=== PATIENT | female | born 1975 | race American Indian/Alaskan Native ===

== ENCOUNTER 2018-01-01 11:01 | Emergency (ER) | payer SELFPAY ==
--- NOTE | 2018-01-01 12:32 | Emergency Department Report ---
- General Chief Complaint: Upper Respiratory Infection Stated Complaint: BODY PAIN/SINUS PRESSURE Source: patient Mode of arrival: Ambulatory Limitations: No Limitations - History of Present Illness Initial Comments: 42-year-old female with complaint of possible sinus infection. She reports initially had sore throat one week ago that has since resolved. Now states has left facial pain, left earache and sinus congestion. Patient reports history of sinus infections in the past, states Flonase is not working this time. Denies fever, vomiting. Patient has history of hypertension, requesting refill on lisinopril and hydrochlorothiazide. States has been out of her medications for "a while." MD Complaint: sore throat, nasal congestion, sinus pain -: week(s) (1) Severity: moderate Quality: sharp, aching Consistency: constant Improves With: nothing Worsens With: nothing Associated Symptoms: headache, nasal congestion. denies: fever, cough, nausea, vomiting - Related Data Previous Rx's Medication Instructions Recorded Last Taken Type Amoxicillin/Potassium Clav 1 each PO BID 10 Days #20 tablet 01/01/18 Unknown Rx [Augmentin 875-125 Tablet] Lisinopril/Hydrochlorothiazide 1 tab PO QDAY #30 tab 01/01/18 Unknown Rx [Zestoretic 20-25 mg] Naproxen [Naprosyn] 500 mg PO BID PRN #20 tablet 01/01/18 Unknown Rx Allergies Allergy/AdvReac Type Severity Reaction Status Date / Time No Known Allergies Allergy Unverified 01/01/18 11:36 ED Review of Systems ROS: Stated complaint: BODY PAIN/SINUS PRESSURE Other details as noted in HPI Comment: All other systems reviewed and negative Constitutional: denies: chills, fever ENT: ear pain, throat pain, congestion, other (sinus pain) Respiratory: denies: cough Gastrointestinal: denies: nausea, vomiting Neurological: headache ED Past Medical Hx - Past Medical History Hx Hypertension: Yes - Surgical History Past Surgical History?: No - Social History Smoking Status: Current Every Day Smoker Substance Use Type: None - Medications Home Medications: Home Medications Medication Instructions Recorded Confirmed Last Taken Type Amoxicillin/Potassium Clav 1 each PO BID 10 Days #20 tablet 01/01/18 Unknown Rx [Augmentin 875-125 Tablet] Lisinopril/Hydrochlorothiazide 1 tab PO QDAY #30 tab 01/01/18 Unknown Rx [Zestoretic 20-25 mg] Naproxen [Naprosyn] 500 mg PO BID PRN #20 tablet 01/01/18 Unknown Rx ED Physical Exam - General Limitations: No Limitations General appearance: alert, in no apparent distress - Head Head exam: Present: atraumatic, normocephalic - Eye Eye exam: Present: normal appearance - ENT ENT exam: Present: normal orophraynx, TM's normal bilaterally, other ( tenderness to left frontal and maxillary sinuses) - Neck Neck exam: Present: normal inspection, full ROM. Absent: meningismus - Respiratory Respiratory exam: Present: normal lung sounds bilaterally. Absent: respiratory distress - Cardiovascular Cardiovascular Exam: Present: normal rhythm, tachycardia - GI/Abdominal GI/Abdominal exam: Present: soft. Absent: distended, tenderness - Extremities Exam Extremities exam: Present: normal inspection - Neurological Exam Neurological exam: Present: alert, oriented X3. Absent: CN II-XII intact - Psychiatric Psychiatric exam: Present: normal affect, normal mood - Skin Skin exam: Present: warm, dry, intact, normal color. Absent: rash ED Course Vital Signs 01/01/18 01/01/18 11:33 12:42 Temperature 98.2 F Pulse Rate 117 H 99 H Respiratory 18 18 Rate Blood Pressure 198/109 Blood Pressure 195/92 [Left] O2 Sat by Pulse 96 Oximetry ED Medical Decision Making - Differential Diagnosis sinusitis, medication refill, URI Critical care attestation.: If time is entered above; I have spent that time in minutes in the direct care of this critically ill patient, excluding procedure time. ED Disposition Clinical Impression: Essential (primary) hypertension, Sinusitis, Medication refill Disposition: TO HOME OR SELFCARE Is pt being admited?: No Condition: Stable Instructions: Sinusitis (ED), Hypertension (ED) Prescriptions: Amoxicillin/Potassium Clav [Augmentin 875-125 Tablet] 1 each PO BID 10 Days #20 tablet Lisinopril/Hydrochlorothiazide [Zestoretic 20-25 mg] 1 tab PO QDAY #30 tab Naproxen [Naprosyn] 500 mg PO BID PRN #20 tablet PRN Reason: pain Referrals: PRIMARY CARE, [Primary Care Provider] - 3-5 Days [facility] [Provider Group] - 3-5 Days [facility] [Outside] - 3-5 Days MIKE MCKOY MD [Staff Physician] - as needed Time of Disposition: 12:35
[2018-01-01 12:43] VITALS: BP 195/92
== END 2018-01-01 12:43 | disposition home or self-care (01) ==
LOC: ED 11:01
DX: J32.9 Chronic sinusitis, unspecified (principal); J01.90 Acute sinusitis, unspecified; Z76.0 Encounter for issue of repeat prescription; I10 Essential (primary) hypertension; F17.200 Nicotine dependence, unspecified, uncomplicated
CPT/HCPCS: 99282